=== PATIENT | male | born 1995 | race Two or more races ===

== ENCOUNTER 2021-02-17 00:19 | Emergency (ER) | payer OTHER, SELFPAY ==
[2021-02-17 00:33] VITALS: BP 165/101; PULSE 91; RESP 19; O2SAT 98; BMI 47.2
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
--- NOTE | 2021-02-17 01:02 | PC.NURSE ---
pt requesting food and a drink. pt assisted with urinal at the bed side.
== END 2021-02-17 01:51 | disposition home or self-care (01) ==
LOC: HO.ED 01:21
PROVIDERS: Emergency Provider Internal Medicine
DX: S01.01XA Laceration without foreign body of scalp, initial encounter (principal); V43.52XA Car driver injured in collision with other type car in traffic accident, initial encounter; Y93.89 Activity, other specified; Y92.414 Local residential or business street as the place of occurrence of the external cause; Y99.9 Unspecified external cause status
CPT/HCPCS: 12001; 99283; 99284

== ENCOUNTER 2021-02-23 22:39 | Emergency (ER) | payer OTHER, SELFPAY ==
[2021-02-23 22:45] VITALS: BP 156/86; PULSE 86; RESP 18; TEMP 37; O2SAT 98; BMI 45.9
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
== END 2021-02-23 23:22 | disposition home or self-care (01) ==
LOC: HO.ED 23:09
PROVIDERS: Emergency Provider Internal Medicine
DX: Z48.02 Encounter for removal of sutures (principal)
CPT/HCPCS: 99283